=== PATIENT | female | born 1990 | race Caucasian/White ===

== ENCOUNTER 2024-05-11 14:47 | Outpatient (AMB) | payer BC, SELFPAY ==
--- NOTE | 2024-05-11 15:05 | MHC.PC.OV ---
Vital Signs 05/11/24 15:07 Height 5 ft 7 in Weight 257 lb BMI 40.2 BP 126/62 Blood Pressure Location Lt brachial Position Sitting Pulse 77 Pulse Source Pulse Oximeter Pulse Oximetry (%) 99 Oxygen Delivery Method Room Air Intake Visit Reasons: Establish Care never been seen Intake Note: Patient is here to establish care with [facility]. 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 Epi pen needed Allergy to nuts, raw tomatoes, citrus fruits. Executive Sales Manager Required: No Accompanied by: Self / Same As Patient Allergies No Known Allergies Allergy (Verified 05/11/24 15:14) Tobacco use date assessed: 05/11/24 Dental Screening Dental Screen Date: 05/11/24 Did you have a dental visit in the last 12 months?: Yes Did you have a dental problem in the last 6 months where you did not have access to dental care?: No Was dental information given to patient?: Patient has dentist HPI HPI Comments History of Present Illness Details This is a 33 year old female with a past medical history of food intolerance presenting to establish care She has noticed tongue, throat discomfort with certain foods, ones which she has generally tolerated in the past. She has hives/wheals at times. Does not know trigger. Denies CP palpitations. She notes chronic difficulty concentrating. spending 3x as long doing things she should be doing a lot faster ROS CONSTITUTIONAL: Denies weight loss, fever and chills. HEENT: Denies changes in vision and hearing. RESPIRATORY: Denies SOB and cough. CV: Denies palpitations and CP GI: Denies abdominal pain, nausea, vomiting and diarrhea. : Denies dysuria and urinary frequency. MSK: Denies new myalgia and joint pain. SKIN: Denies rash and pruritus. NEUROLOGICAL: Denies headache PSYCHIATRIC: Denies recent changes in mood. PHYSICAL EXAM: GENERAL: Alert and oriented x 3. NAD EYES: EOMI. Anicteric. HENT: Moist mucous membranes. No scleral icterus. No cervical lymphadenopathy. LUNGS: Clear to auscultation bilaterally. CARDIOVASCULAR: Regular rate and rhythm. No murmur. No JVD. ABDOMEN: Soft, non-tender +bs EXTREMITIES: No edema. Non-tender. SKIN: No rashes or lesions. Warm. NEUROLOGIC: No focal neurological deficits. CN II-XII grossly intact PSYCHIATRIC: Cooperative. Appropriate mood and affect [facility] Medical History (Updated 05/11/24 @ 15:35 by Madelin España MD) Hypertension Surgical History (Updated 05/11/24 @ 15:28 by Karly Koch CMA) No pertinent past surgical history Family History (Updated 05/11/24 @ 15:29 by Karly Koch CMA) Mother Hypertension High cholesterol Father High cholesterol Social History Household Members: Family Housing: House Do you presently have visiting nurse or other home services: No Alcohol intake: never Patient Tobacco Use Status: Never used Tobacco e-Cigarette/Vaping Use: Never Used service: No Current occupational status: employed Current occupation: [employer] Current occupational exposures/hazards: No Cognitive needs: No Hearing needs: No Vision needs: Yes (notices vision changes) Questionnaire PHQ-9 Over the last 2 weeks, how often have you been bothered by any of the following problems? 1. Little interest or pleasure in doing things: not at all 2. Feeling down, depressed, or hopeless: several days 3. Trouble falling or staying asleep, or sleeping too much: several days 4. Feeling tired or having little energy: more than half the days 5. Poor appetite or overeating: more than half the days 6. Feeling bad about yourself - or that you are a failure or have let yourself or your family down: not at all 7. Trouble concentrating on things, such as reading the newspaper or watching television: nearly every day 8. Moving or speaking so slowly that other people could have noticed. Or the opposite - being so fidgety or restless that you have been moving around a lot more than usual: several days 9. Thoughts that you would be better off or of hurting yourself in some way: not at all Total score: 10 Depression Screening Interpretation: Positive Depression Screening Done: Yes 52698 - PHQ-9 Billing: Yes Source: Developed by Drs. Juvenal Richards, Jess Medina, Mitchel Quach and colleagues, with an educational mich from [employer]. Thrive Questionnaire Date Thrive assessed: 05/11/24 I am a: Patient What is your living situation today?: I have a steady place to live Within the past 12 months, did the food you bought not last and you didn't have the money to get more?: Sometimes True Within the past 12 months, did you worry whether your food would run out before you got money to buy more?: Sometimes True Do you have trouble paying for medicines?: Yes Do you have trouble getting transportation to medical appointments?: No Do you have trouble paying your heating and electricity bill?: No Do you have trouble taking care of your child, family member or friend?: No Do you have trouble with day-to-day activities such as bathing, preparing meals, shopping, managing finances, etc.?: No Are you currently unemployed and looking for a job?: No Are you interested in more education?: Yes Please select the resources that you would like help with: Food and Paying for medicine Currently or been in a relationship where the following occur: No concerns reported THRIVE Score: 2 AUDIT C Alcohol Use Questionnaire (AUDIT-C) 1. How often do you have a drink containing alcohol?: Never 3. How often do you have six or more drinks on one occasion?: Never Total Score: 0 ELBA-7 AMB Questionnaire ELBA-7 Date ELBA - 7 assessed: 05/11/24 Feeling nervous, anxious, or on edge: 1 = Several days Not being able to stop or control worryin = Several days Worrying too much about different things: 3 = Nearly every day Trouble relaxin = Nearly every day Being so restless that it is hard to sit still: 1 = Several days Becoming easily annoyed or irritable: 3 = Nearly every day Feeling afraid as if something awful might happen: 1 = Several days Total ELBA-7 score (0-4 normal; 5-9 mild; 10-14 moderate; 15-21 severe): 13 Source: Developed by Drs. Juvenal Richards, Jess Medina, Mitchel Quach and colleagues, with an educational mich from [employer]. ELBA-7 Assessment Billing ELBA-7 Assessment Tool: ELBA-7 Assessment 44211 Physical exam (Primary Care) Vital Signs: Last Vital Signs Pulse 77 05/11/24 15:07 BP 126/62 05/11/24 15:07 Pulse Ox 99 05/11/24 15:07 Oxygen Delivery Method Room Air 05/11/24 15:07 BMI result Body Mass Index 40.2 Tobacco/Smoking Status: Tobacco use Status Tobacco use date assessed 05/11/24 05/11/24 15:25 Patient Tobacco Use Status Never used Tobacco 05/11/24 15:25 e-Cigarette/Vaping Use Never Used 05/11/24 15:25 PHQ-9: PHQ-9 Score PHQ-9: Total score 10 05/11/24 15:47 Depression Screening Interpretation: Positive Thrive Assessment: Date of Thrive Assessment Date Thrive assessed 05/11/24 05/11/24 15:25 Currently or been in a relationship where the following occur: No concerns reported Assessment and Plan Assessment & Plan (1) Physical exam: Code(s): Z00.00 - Encounter for general adult medical examination without abnormal findings (2) Elevated blood pressure reading without diagnosis of hypertension: Code(s): R03.0 - Elevated blood-pressure reading, without diagnosis of hypertension (3) Food allergy: Code(s): Z91.018 - Allergy to other foods Orders: Orders Complete Blood Count Auto Diff 05/11/24 Z13.0 - Encounter for screening for diseases of the blood and blood-forming organs and certain disorders involving the immune mechanism, Z13.220 - Encounter for screening for lipoid disorders, Z13.228 - Encounter for screening for other metabolic disorders Comprehensive Met. Panel 05/11/24 Z13.0 - Encounter for screening for diseases of the blood and blood-forming organs and certain disorders involving the immune mechanism, Z13.220 - Encounter for screening for lipoid disorders, Z13.228 - Encounter for screening for other metabolic disorders TSH reflex Free T4 05/11/24 Z13.0 - Encounter for screening for diseases of the blood and blood-forming organs and certain disorders involving the immune mechanism, Z13.220 - Encounter for screening for lipoid disorders, Z13.228 - Encounter for screening for other metabolic disorders Lipid Panel 05/11/24 Z13.0 - Encounter for screening for diseases of the blood and blood-forming organs and certain disorders involving the immune mechanism, Z13.220 - Encounter for screening for lipoid disorders, Z13.228 - Encounter for screening for other metabolic disorders Referrals [facility] Referral R03.0 - Elevated blood-pressure reading, without diagnosis of hypertension, Z00.00 - Encounter for general adult medical examination without abnormal findings, Z01.419 - Encounter for gynecological examination (general) (routine) without abnormal findings, Z13.0 - Encounter for screening for diseases of the blood and blood-forming organs and certain disorders involving the immune mechanism, Z13.220 - Encounter for screening for lipoid disorders, Z13.228 - Encounter for screening for other metabolic disorders, Z91.018 - Allergy to other foods Allergy & Immunology Referral Z91.018 - Allergy to other foods Medications: New epinephrine (EpiPen 2-Jeremiah) for 3 doses 0.3 mg (0.3 mL) IM Q10M PRN 2 ea 0RF anaphylaxis dextroamphetamine-amphetamine 10 mg (Adderall) administer doses at least 4-6 hours apart; Partial Fill upon patient request. 10 mg PO BID 30 days 60 tabs 0RF Coding Level of Care Code Est Pt Level 5 (20054) Complex EM visit Add On G2211 Diagnoses Physical exam Z00.00 Elevated blood pressure reading without diagnosis of hypertension R03.0 Food allergy Z91.018 Additional Codes ELBA-7 Assessment Billing - ELBA-7 Assessment Tool: ELBA-7 Assessment 84355 ([id number])
[2024-05-11 15:07] VITALS: BP 126/62; PULSE 77; O2SAT 99; BMI 40.2
== END 2024-05-11 15:49 | disposition home or self-care (01) ==
PROVIDERS: PCP Internal Medicine; Visit Provider Internal Medicine
DX: R03.0 Elevated blood-pressure reading, without diagnosis of hypertension (principal); Z91.018 Allergy to other foods
CPT/HCPCS: 99204

== ENCOUNTER 2024-05-11 15:51 | Outpatient (REF) | payer BC, SELFPAY ==
[2024-05-11 17:24] LABS: MANUAL DIFF FLAG NO
[2024-05-11 17:40] LABS: Basophils Percent Auto 0.1 % (0-2); Eosinophils Absolute Auto 0.1 X10*3/uL (0.0-0.4); Eosinophils Percent Auto 1.2 % (0-4); Hematocrit 38.6 % (37.0-47.0); Hemoglobin 13.1 g/dl (12.0-16.0); Imm Gran Abs Auto 0.02 X10*3/uL (0.00-0.03); Imm Gran Pct Auto 0.3 % (0.0-0.4); Lymphocytes Absolute Auto 1.7 X10*3/uL (1.2-4.9); Lymphocytes Percent Auto 24.9 % (20-40); Mean Corpuscular HGB Conc 33.9 g/dl (31.0-35.0); Mean Corpuscular Hemoglobin 29.8 pg (27.0-33.0); Mean Corpuscular Volume 87.9 fL (80.0-98.0); Mean Platelet Volume 10.9 fL (9.4-12.3); Monocytes Absolute Auto 0.8 X10*3/uL (0.1-1.2); Monocytes Percent Auto 11.6 % (2-11); Neutrophils Absolute Auto 4.2 x10*3/uL (2.0-8.3); Neutrophils Percent Auto 61.9 % (45-73); Platelet Count 284 X10*3/uL (160-400); Red Blood Count 4.39 X10*6/uL (4.20-5.50); Red Cell Distribution Width 12.8 % (11.0-16.0); White Blood Count 6.7 X10*3/uL (4.8-10.8)
[2024-05-11 18:13] LABS: Alanine Aminotransferase 36 U/L (0-31); Albumin Level 4.7 g/dL (3.5-5.0); Alkaline Phosphatase 67 U/L (39-117); Anion Gap 15 (12-20); Aspartate Amino Transferase 24 U/L (5-31); Bilirubin Total 0.3 mg/dL (0.0-1.0); Blood Urea Nitrogen 14 mg/dL (9-16); Calcium 9.9 mg/dL (8.4-10.2); Carbon Dioxide 25 mmol/L (22-29); Chloride 103 mmol/L (96-108); Cholesterol 259 mg/dL (<200); Estimated Glomerular Filt Rate > 60; Glucose Random 85 mg/dL (60-115); HDL Cholesterol 58 mg/dL (>40); LDL Cholesterol Calculated 178 mg/dL (<100); Sodium 139 mmol/L (135-145); Triglycerides 119 mg/dL (<150)
[2024-05-11 18:28] LABS: TSH reflex Free T4 0.59 uIU/mL (0.32-4.0)
== END 2024-05-11 15:52 | disposition home or self-care (01) ==
LOC: HO.WFDLDS 15:51
PROVIDERS: Visit Provider Internal Medicine
DX: Z13.0 Encounter for screening for diseases of the blood and blood-forming organs and certain disorders involving the immune mechanism (principal); Z13.220 Encounter for screening for lipoid disorders; Z13.228 Encounter for screening for other metabolic disorders
CPT/HCPCS: 36415; 80053; 80061; 84443; 85025

== ENCOUNTER → 2024-05-21 10:30 | Outpatient (AMB) | payer BC, SELFPAY ==
--- NOTE | 2024-05-21 09:54 | MHC.PC.OV ---
Intake Visit Reasons: Lab results Allergies No Known Allergies Allergy (Verified 05/11/24 15:14) Tobacco use date assessed: 05/11/24 Dental Screening Dental Screen Date: 05/11/24 HPI HPI Comments History of Present Illness Details This is a 33 year old female with a past medical history of food intolerance presenting for follow up labs Recently seen to [facility]. LDL 178 with elevated total cholesterol. Otherwise labs clinically normal She has noticed tongue, throat discomfort with certain foods, ones which she has generally tolerated in the past. She has hives/wheals at times. Does not know trigger. Denies CP palpitations. She notes chronic difficulty concentrating. spending 3x as long doing things she should be doing a lot faster [facility] Medical History (Updated 05/23/24 @ 19:20 by Madelin España MD) Hypertension Surgical History (Updated 05/11/24 @ 15:28 by Karly Koch CMA) No pertinent past surgical history Family History (Updated 05/11/24 @ 15:29 by Karly Koch CMA) Mother Hypertension High cholesterol Father High cholesterol Social History Household Members: Family Housing: House Do you presently have visiting nurse or other home services: No 75 years or older and lives alone: No Alcohol intake: never Patient Tobacco Use Status: Never used Tobacco e-Cigarette/Vaping Use: Never Used service: No Current occupational status: employed Current occupation: [employer] Current occupational exposures/hazards: No Cognitive needs: No Hearing needs: No Vision needs: Yes (notices vision changes) Questionnaire Thrive Questionnaire Date Thrive assessed: 05/11/24 ELBA-7 AMB Questionnaire ELBA-7 Date ELBA - 7 assessed: 05/11/24 Source: Developed by Drs. Juvenal Richards, Jess Medina, Mitchel Quach and colleagues, with an educational mihc from [employer]. Physical exam (Primary Care) Tobacco/Smoking Status: Tobacco use Status Tobacco use date assessed 05/11/24 05/21/24 09:55 Patient Tobacco Use Status Never used Tobacco 05/21/24 09:55 e-Cigarette/Vaping Use Never Used 05/21/24 09:55 Thrive Assessment: Date of Thrive Assessment Date Thrive assessed 05/11/24 05/21/24 09:55 Telehealth Telehealth Telehealth Platform: Telephone Location of provider rendering services: practice address Location of patient: address on file Patient Identification confirmed using: Name, : Yes Telehealth method: voice only Patient verbally consented to treatment: Yes Patient verbally consented to billing insurance company: Yes Patient informed of any privacy concerns related to visit: Yes Minutes spent on Phone/Video with Pt.: 13 Assessment and Plan Assessment & Plan (1) Hyperlipidemia: Code(s): E78.5 - Hyperlipidemia, unspecified Qualifiers: Hyperlipidemia type: pure hypercholesterolemia Qualified Code(s): E78.00 - Pure hypercholesterolemia, unspecified Plan: Advised diet low in saturated fats-decreased packaged and prepared foods.. Increased physical activity Coding Level of Care Code Tele Est Pt Level 2 (64648) Diagnoses Pure hypercholesterolemia E78.00 Hyperlipidemia type: pure hypercholesterolemia
== END ==
LOC: HO.HMGFM 10:30
PROVIDERS: PCP Internal Medicine; Visit Provider Internal Medicine
DX: E78.00 Pure hypercholesterolemia, unspecified (principal)
CPT/HCPCS: 99442

== ENCOUNTER 2024-10-25 11:01 | Outpatient (AMB) | payer BC, SELFPAY ==
--- NOTE | 2024-10-25 11:12 | A.OFFPC_ITS ---
Vital Signs 10/25/24 11:13 Height 5 ft 7 in Weight 243 lb 2 oz BMI 38.1 BP 116/84 Blood Pressure Location Lt brachial Position Sitting Pulse 120 H Pulse Source Pulse Oximeter Temp 99 F Temp Source Oral Pulse Oximetry (%) 97 Oxygen Delivery Method Room Air Intake Visit Reasons: Nausea/vomiting Intake Note: Nausea, vomiting, diarrhea, lower back pain. Symptoms for the last couple days. Allergies No Known Allergies Allergy (Verified 10/25/24 11:13) Tobacco use date assessed: 05/11/24 Dental Screening Dental Screen Date: 05/11/24 HPI HPI Comments History of Present Illness Details This is a 34 year old female with a past medical history of food intolerance presenting for nausea Has been having digestion issues chronically. Yesterday, started having diarrhea and some vomiting yesterday. +nausea. Denies fevers. Feels fatigued, sore. Unsure of sick contacts. Able to tolerate drinking, eating. She has been taking some pepcid Hyperlipidemia: Decreased cholesterol rich foods. She has noticed tongue, throat discomfort with certain foods, ones which she has generally tolerated in the past. She has hives/wheals at times. Does not know trigger. Denies CP palpitations. She notes chronic difficulty concentrating. spending 3x as long doing things she should be doing a lot faster ROS see HPI PHYSICAL EXAM: GENERAL: Alert and oriented x 3. NAD EYES: EOMI. Anicteric. HENT: Moist mucous membranes. No scleral icterus. No cervical lymphadenopathy. LUNGS: Clear to auscultation bilaterally. CARDIOVASCULAR: Regular rate and rhythm. No murmur. No JVD. ABDOMEN: Soft, non-tender +bs EXTREMITIES: No edema. Non-tender. SKIN: No rashes or lesions. Warm. NEUROLOGIC: No focal neurological deficits. CN II-XII grossly intact PSYCHIATRIC: Cooperative. Appropriate mood and affect [facility] Medical History Hypertension Surgical History No pertinent past surgical history Family History Mother Hypertension High cholesterol Father High cholesterol Social History Household Members: Family Housing: House Do you presently have visiting nurse or other home services: No 75 years or older and lives alone: No Alcohol intake: never Patient Tobacco Use Status: Never used Tobacco e-Cigarette/Vaping Use: Never Used Use of substances other than those prescribed or required for medical reasons: No service: No Current occupational status: employed Current occupation: [employer] Current occupational exposures/hazards: No Cognitive needs: No Hearing needs: No Vision needs: Yes (notices vision changes) Questionnaire PHQ-9 Over the last 2 weeks, how often have you been bothered by any of the following problems? 1. Little interest or pleasure in doing things: not at all 2. Feeling down, depressed, or hopeless: not at all 3. Trouble falling or staying asleep, or sleeping too much: several days 4. Feeling tired or having little energy: several days 5. Poor appetite or overeating: not at all 6. Feeling bad about yourself - or that you are a failure or have let yourself or your family down: not at all 7. Trouble concentrating on things, such as reading the newspaper or watching television: several days 8. Moving or speaking so slowly that other people could have noticed. Or the opposite - being so fidgety or restless that you have been moving around a lot more than usual: not at all 9. Thoughts that you would be better off or of hurting yourself in some way: not at all Total score: 3 Depression Screening Interpretation: Positive Depression Screening Done: Yes 09238 - PHQ-9 Billing: Yes Source: Developed by Drs. Juvenal Richards, Jess Medina, Mitchel Quach and colleagues, with an educational mich from [employer]. Thrive Questionnaire Date Thrive assessed: 10/25/24 I am a: Patient What is your living situation today?: I have a steady place to live Within the past 12 months, did the food you bought not last and you didn't have the money to get more?: Sometimes True Within the past 12 months, did you worry whether your food would run out before you got money to buy more?: Sometimes True Do you have trouble paying for medicines?: No Do you have trouble getting transportation to medical appointments?: No Do you have trouble paying your heating and electricity bill?: No Do you have trouble taking care of your child, family member or friend?: No Do you have trouble with day-to-day activities such as bathing, preparing meals, shopping, managing finances, etc.?: No Are you currently unemployed and looking for a job?: No Are you interested in more education?: Yes Please select the resources that you would like help with: None Currently or been in a relationship where the following occur: No concerns reported THRIVE Score: 2 AUDIT C Alcohol Use Questionnaire (AUDIT-C) 1. How often do you have a drink containing alcohol?: Never Total Score: 0 ELBA-7 AMB Questionnaire ELBA-7 Date ELBA - 7 assessed: 05/11/24 Feeling nervous, anxious, or on edge: 1 = Several days Not being able to stop or control worryin = Several days Worrying too much about different things: 1 = Several days Trouble relaxin = Nearly every day Being so restless that it is hard to sit still: 1 = Several days Becoming easily annoyed or irritable: 2 = More than half the days Feeling afraid as if something awful might happen: 0 = Not at all Total ELBA-7 score (0-4 normal; 5-9 mild; 10-14 moderate; 15-21 severe): 9 Source: Developed by Drs. Juvenal Richards, Jess Medina, Mitchel Quach and colleagues, with an educational mich from [employer]. ELBA-7 Assessment Billing ELBA-7 Assessment Tool: ELBA-7 Assessment 55069 Physical exam (Primary Care) Vital Signs: Last Vital Signs Temp 99 F 10/25/24 11:13 Pulse 120 H 10/25/24 11:13 BP 116/84 10/25/24 11:13 Pulse Ox 97 10/25/24 11:13 Oxygen Delivery Method Room Air 10/25/24 11:13 BMI result Body Mass Index 38.1 Tobacco/Smoking Status: Tobacco use Status Tobacco use date assessed 05/11/24 10/25/24 11:17 Patient Tobacco Use Status Never used Tobacco 10/25/24 11:17 e-Cigarette/Vaping Use Never Used 10/25/24 11:17 PHQ-9: PHQ-9 Score PHQ-9: Total score 3 10/25/24 11:19 Depression Screening Interpretation: Positive Thrive Assessment: Date of Thrive Assessment Date Thrive assessed 10/25/24 10/25/24 11:17 Currently or been in a relationship where the following occur: No concerns reported Coding Level of Care Code Est Pt Level 4 (51126) Diagnoses Nausea R11.0 Additional Codes ELBA-7 Assessment Billing - ELBA-7 Assessment Tool: ELBA-7 Assessment 03958 ([id number]) PHQ-9 - 22702 - PHQ-9 Billing: Yes ([id number]) Assessment & Plan Assessment & Plan (1) Nausea: Code(s): R11.0 - Nausea Category: Medical Plan: Discussed symptoms likely reflect a viral GI illness. zofran sent. Push fluids, rest. continue prn pepcid. Call for worsening abdominal pain, inability to tolerate po, fevers etc Medications: New ondansetron 4 mg PO Q8H PRN 30 tabs 0RF nausea and vomiting
[2024-10-25 11:13] VITALS: BP 116/84; PULSE 120; TEMP 37.2; O2SAT 97; BMI 38.1
== END 2024-10-25 11:34 | disposition home or self-care (01) ==
PROVIDERS: PCP Internal Medicine; Visit Provider Internal Medicine
DX: R11.0 Nausea (principal)

== ENCOUNTER → 2024-10-25 11:01 | Outpatient (BNVA) | payer BC, SELFPAY | PROVIDERS: PCP Internal Medicine; Visit Provider Internal Medicine | DX: R11.0 Nausea (principal); R19.7 Diarrhea, unspecified | CPT/HCPCS: 96127 ==

== ENCOUNTER 2024-11-22 14:55 | Outpatient (REF) | payer BC, SELFPAY ==
[2024-11-22 18:48] LABS: Influenza A PCR NEGATIVE (Negative); Influenza B PCR NEGATIVE (Negative); Resp Syncy Virus RNA Qual PCR NEGATIVE (Negative); SARS COV2 PCR INHOUSE NEGATIVE (Negative)
== END 2024-11-22 14:56 | disposition home or self-care (01) ==
LOC: HO.LAB 14:55
PROVIDERS: PCP Internal Medicine; Visit Provider Physician Assistant Medical
DX: J02.0 Streptococcal pharyngitis (principal); R09.89 Other specified symptoms and signs involving the circulatory and respiratory systems; R50.9 Fever, unspecified
CPT/HCPCS: 0241U; 87880

== ENCOUNTER 2024-11-22 14:55 | Outpatient (AMB) | payer BC, SELFPAY ==
--- NOTE | 2024-11-22 14:56 | MHC.PC.OV ---
Vital Signs 11/22/24 15:03 Height 5 ft 7 in Weight 243 lb BMI 38.1 BP 116/72 Blood Pressure Location Rt brachial Position Sitting Pulse 92 Pulse Source Pulse Oximeter Temp 98.2 F Temp Source Oral Pulse Oximetry (%) 98 Oxygen Delivery Method Room Air Intake Visit Reasons: sore throat, chills and fever Intake Note: Symptoms started Friday. Chills, fever was 104 on friday, 102 and 103 other day. Sore throat, ear pain, jaw pain. Taking ibuprofen. Covid test negative yesterday. 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 Symptoms started Friday and include fevers, chills, fatigue, body aches, headache and sore throat. Temperature max was 104 Friday. Temperature has been 102-103 since then. Took 800 mg Motrin today and is currently afebrile. Sore throat hurts more to swallow. Rated 8/10. Radiates into jaw and ears. Negative COVID-19 tests yesterday at home. 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 Patient able to swallow normally and is eating and drinking. No vomiting, diarrhea, abdominal pain or skin rashes. Patient did not receive influenza vaccine. Patient also has recurrent cold sore on her lower lip. ROS: Constitutional: No unexplained weight loss, night sweats, see HPI. Eyes: No vision changes, blurry vision, double vision, eye pain, eye redness, eye discharge. ENT: No hearing loss, sinus pain. Mild nasal congestion. Respiratory: No shortness of breath, hemoptysis or sputum production. No wheezing. Cardiovascular: No chest pain, chest pressure or chest discomfort. Gastrointestinal: No anorexia, nausea, vomiting or diarrhea. No abdominal pain or blood in stool. Neurologic: No dizziness or syncope. +headache. Skin: No rash Physical exam: Constitutional: Alert, in no distress. Eyes: Pupils are equal, round and reactive to light. Extraocular muscles intact. Ear, Nose and Throat: There is some cerumen in the right canal, but the TM is visible and appears normal. Left tympanic membrane is slightly pink but no bulging or effusion. Sinuses nontender. Nasal mucosa is mildly erythematous. Tonsils and pharyngeal erythema noted and tonsils are 2+-no visible exudates. There is a small cold sore on the left lower lip. Neck: Supple, Full range of motion. Bilateral anterior cervical and submandibular lymphadenopathy. No palpable thyroid masses. Respiratory: Clear to auscultation. Cardiovascular: S1 S2 regular. No murmurs Gastrointestinal: Abdomen soft, non-tender, non-distended. Normal bowel sounds. No palpable masses.. Neurologic: No focal neurological deficits. Skin: No rash Extremities: Warm and well perfused. No clubbing, cyanosis or edema. [facility] Medical History (Updated 11/22/24 @ 15:27 by ORTIZ Sloan) Recurrent cold sores Fever Strep pharyngitis Hypertension Surgical History No pertinent past surgical history Family History Mother Hypertension High cholesterol Father High cholesterol Social History Household Members: Family Housing: House Do you presently have visiting nurse or other home services: No 75 years or older and lives alone: No Alcohol intake: never Patient Tobacco Use Status: Never used Tobacco e-Cigarette/Vaping Use: Never Used service: No Current occupational status: employed Current occupation: [employer] Current occupational exposures/hazards: No Cognitive needs: No Hearing needs: No Vision needs: Yes (notices vision changes) Questionnaire PHQ-9 Over the last 2 weeks, how often have you been bothered by any of the following problems? 1. Little interest or pleasure in doing things: several days Source: Developed by Drs. Juvenal Richards, Jess Medina, Mitchel Quach and colleagues, with an educational mich from [employer]. Thrive Questionnaire Date Thrive assessed: 10/25/24 I am a: Patient What is your living situation today?: I have a steady place to live Within the past 12 months, did the food you bought not last and you didn't have the money to get more?: Sometimes True Within the past 12 months, did you worry whether your food would run out before you got money to buy more?: Sometimes True Do you have trouble paying for medicines?: No Do you have trouble getting transportation to medical appointments?: No Do you have trouble paying your heating and electricity bill?: No Do you have trouble taking care of your child, family member or friend?: No Do you have trouble with day-to-day activities such as bathing, preparing meals, shopping, managing finances, etc.?: No Are you currently unemployed and looking for a job?: No Are you interested in more education?: Yes Please select the resources that you would like help with: None Currently or been in a relationship where the following occur: No concerns reported THRIVE Score: 2 ELBA-7 AMB Questionnaire ELBA-7 Date ELBA - 7 assessed: 05/11/24 Source: Developed by Drs. Juvenal Richards, Jess Medina, Mitchel Quach and colleagues, with an educational mich from [employer]. Physical exam (Primary Care) Vital Signs: Last Vital Signs Temp 98.2 F 11/22/24 15:03 Pulse 92 11/22/24 15:03 BP 116/72 11/22/24 15:03 Pulse Ox 98 11/22/24 15:03 Oxygen Delivery Method Room Air 11/22/24 15:03 BMI result Body Mass Index 38.1 Tobacco/Smoking Status: Tobacco use Status Tobacco use date assessed 05/11/24 11/22/24 14:58 Patient Tobacco Use Status Never used Tobacco 11/22/24 14:58 e-Cigarette/Vaping Use Never Used 11/22/24 14:58 Thrive Assessment: Date of Thrive Assessment Date Thrive assessed 10/25/24 11/22/24 14:58 Currently or been in a relationship where the following occur: No concerns reported Results AMB Rapid Strep AMB Rapid Strep Positive Last Edit by Jacy Davidson CMA on 11/22/24 15:09 Results Reviewed Results Reviewed: Laboratory Last Values Strep Scn Rapid [facility] Positive 11/22/24 15:06 Coding Level of Care Code Est Pt Level 3 (30143) Complex EM visit Add On G2211 Diagnoses Strep pharyngitis J02.0 Fever R50.9 Recurrent cold sores B00.1 Assessment & Plan Assessment & Plan (1) Strep pharyngitis: Code(s): J02.0 - Streptococcal pharyngitis Category: Medical (2) Fever: Code(s): R50.9 - Fever, unspecified Category: Medical (3) Recurrent cold sores: Code(s): B00.1 - Herpesviral vesicular dermatitis Category: Medical Plan Rapid strep is positive. No known drug allergies. Treat with amoxicillin 500 mg twice daily. Recommended taking this with food and having yogurt and probiotics. Advised to call if symptoms do not improve in 24-48 hours on antibiotics. She can continue Motrin as needed for pain and fever. Take with food. Rest and increase fluids. Letter provided for work. Swab sent out for influenza/RSV/COVID. Treat cold sort with valacyclovir. Warning signs warranting ER evaluation and office follow up reviewed with the patient. She verbalizes understanding. Orders: Orders SARS-CoV2/FLU/RSV Today R09.89 - Other specified symptoms and signs involving the circulatory and respiratory systems AMB Rapid Strep Screen Today J02.9 - Acute pharyngitis, unspecified Medications: New valacyclovir 2,000 mg (2 x 1 gram) PO Q12H 4 tabs 0RF 1 day amoxicillin 500 mg PO BID 20 tabs 0RF
[2024-11-22 15:03] VITALS: BP 116/72; PULSE 92; TEMP 36.8; O2SAT 98; BMI 38.1
== END 2024-11-22 16:53 | disposition home or self-care (01) ==
PROVIDERS: PCP Internal Medicine; Visit Provider Physician Assistant Medical
DX: J02.0 Streptococcal pharyngitis (principal); R50.9 Fever, unspecified; B00.1 Herpesviral vesicular dermatitis; J02.9 Acute pharyngitis, unspecified

== ENCOUNTER 2025-05-27 10:35 | Outpatient (REF) | payer BC, SELFPAY ==
[2025-05-27 14:47] LABS: MANUAL DIFF FLAG NO
[2025-05-27 15:10] LABS: Hematocrit 38.1 % (37.0-47.0); Hemoglobin 12.6 g/dl (12.0-16.0); Imm Gran Abs Auto 0.02 X10*3/uL (0.00-0.03); Imm Gran Pct Auto 0.3 % (0.0-0.4); Lymphocytes Absolute Auto 2.0 X10*3/uL (1.2-4.9); Mean Corpuscular HGB Conc 33.1 g/dl (31.0-35.0); Mean Corpuscular Hemoglobin 29.6 pg (27.0-33.0); Mean Corpuscular Volume 89.4 fL (80.0-98.0); NRBC Abs Auto 0.000 X10*3/uL (0.0-0.012); NRBC Pct Auto 0.0 /100WBC (0.0-0.2); Platelet Count 265 X10*3/uL (160-400); Red Blood Count 4.26 X10*6/uL (4.20-5.50); White Blood Count 7.2 X10*3/uL (4.8-10.8)
[2025-05-27 15:13] LABS: Hemoglobin A1C 116.1712 umol/L; Total Hemoglobin (HGBA1C) 3246.8278 umol/L
[2025-05-27 15:52] LABS: Alanine Aminotransferase 34 U/L (0-31); Albumin Level 4.6 g/dL (3.5-5.0); Alkaline Phosphatase 64 U/L (39-117); Anion Gap 11 (12-20); Aspartate Amino Transferase 29 U/L (5-31); Blood Urea Nitrogen 13 mg/dL (9-16); Calcium 9.3 mg/dL (8.4-10.2); Carbon Dioxide 24 mmol/L (22-29); Chloride 106 mmol/L (96-108); Cholesterol 263 mg/dL (<200); Estimated Glomerular Filt Rate > 60; HDL Cholesterol 54 mg/dL (>40); Potassium 4.2 mmol/L (3.3-5.1); Sodium 137 mmol/L (135-145); Total Protein 7.5 g/dL (6.5-8.0); Triglycerides 175 mg/dL (<150)
[2025-05-27 16:16] LABS: Folate 6.5 ng/mL (> or = 4.0); Vitamin B12 494 pg/mL (200-900)
[2025-06-02 22:18] LABS: Testosterone, Free 10.2 pg/mL (0.1-6.4)
== END 2025-05-27 10:36 | disposition home or self-care (01) ==
LOC: HO.WFDLDS 10:35
PROVIDERS: PCP Internal Medicine; Visit Provider Physician Assistant Medical
DX: Z00.00 Encounter for general adult medical examination without abnormal findings (principal); R03.0 Elevated blood-pressure reading, without diagnosis of hypertension; E78.00 Pure hypercholesterolemia, unspecified; D22.9 Melanocytic nevi, unspecified; R11.0 Nausea; L68.0 Hirsutism; Z13.0 Encounter for screening for diseases of the blood and blood-forming organs and certain disorders involving the immune mechanism; Z13.1 Encounter for screening for diabetes mellitus
CPT/HCPCS: 36415; 80053; 80061; 82607; 82746; 83036; 84402; 84403; 84443; 85025

== ENCOUNTER 2025-05-27 10:35 | Outpatient (AMB) | payer BC, SELFPAY ==
--- OUTSIDE RECORDS SUMMARY | 2025-05-27 10:37 | XMS_ITS | Clinical Summary ---
Author Organization [facility] Address [address] [place] [address] Care Team Providers Care Doll Dresser Name Role Phone Shandra Zacarias SATYA Primary Care Provider Source Comments PLEASE NOTE, if this patient is a minor, it may be UNLAWFUL to discuss sensitive information that is contained in these records (such as FAMILY PLANNING, MENTAL HEALTH or SUBSTANCE ABUSE) with the minor patient's parent or other person without the patient's specific authorization.[facility] Allergies Active Allergy Reactions Criticality Noted Date Comments Apples Rash 06/10/2013 Medications minoxidil (ROGAINE) 2 % external solutionIndicati ons:Alopecia of scalp Apply topically 2 (two) times daily. 60 mL 1 4 Active butalbital-aceta minophen-caff (FIORICET, ESGIC) 50-325-40 mg per tabletIndication s:Acute intractable tension-type headache Take 1 Tab by mouth every 6 (six) hours as needed for headaches 30 Tab 2 8 Active melatonin 3 mg tabletIndication s:Other insomnia Take 1 Tab by mouth nightly at bedtime as needed for sleep Can take 1 to 2 tabs as needed for insomnia 90 Tab 3 8 Active EPINEPHrine (EPIPEN) 0.3 mg/0.3 mL pen injectorIndicati ons:Food allergy Inject 0.3 mL into the muscle as needed for anaphylaxis 1 Each 3 0 Active hydrOXYzine HCL (ATARAX) 25 mg tabletIndication s:Test anxiety Take 1 Tab by mouth 3 (three) times daily as needed for anxiety 30 Tab 0 Active LORazepam (ATIVAN) 0.5 mg tabletIndication s:Test anxiety Take 1 Tab by mouth once daily 5 Tab 0 Active Active Problems Problem Noted Date Diagnosed Date Pelvic pain in female 02/19/2015 Overview (02/19/2015): [facility] US pelvis 2014: Essentially normal pelvic US with transvaginal abdominal scanning. Normal size and shape to the uterus and ovaries. Alopecia of scalp 03/10/2014 Allergy 03/10/2014 Bunion of great toe 03/10/2014 Resolved Problems Problem Noted Date Diagnosed Date Resolved Date Routine general medical exam ination at a health care facility 03/10/2014 05/20/2018 Immunizations Immunization Administration Dates Next Due TDAP 06/24/2014 Social History Tobacco Use Types Packs/Day Years Used Date Smoking Tobacco: Never Smokeless Tobacco: Never Alcohol Use Standard Drinks/Week Comments No 0 (1 standard drink = 0.6 oz pur e alcohol) Social Connections Answer Date Recorded Connectedness 0 06/25/2024 Financial Resource Strain Answer Date R ecorded Financial Resource Strain 0 2018 Stress Answer Date Recorded Stress 0 06/12/2019 Physical Activity Answer Date Recorded Physical Activity 0 06/12/2019 Food Insecurity Answer Date Recorded Food 0 07/15/2024 Transportation Needs Answer Date Record ed Transportation 0 06/12/2019 Housing Stability Answer Date Recorded Housing 0 06/12/2019 Safety and Environment Answer Date Matt rded Safety 0 08/04/2020 Utilities Answer Date Recorded Utilities 0 06/12/2019 Employment Answer Date Recorded Employment 0 06/12/2019 Comments No Sex and Gender Information Value Date Recorded Sex Assigned at Female 05/20/2018 12:48 PM PDT Legal Sex Female 11:36 AM PDT Gender Identity Female 05/20/2018 12:48 PM PDT Sexual Orientation Straight 05/20/2018 12 :48 PM PDT Last Filed Vital Signs Vital Sign Reading Time Taken Comments Blood Pressure 110/74 08/04/2020 3:28 PM EDT Pulse 92 08/04/2020 3:28 PM EDT Temperature 37.5 C (99.5 F) 08/04/2020 3:28 PM EDT Respiratory Rate 16 08/04/2020 3:28 PM EDT Oxygen Saturation 99% 08/04/2020 3:28 PM EDT Inhaled Oxygen Concentration - - Weight 102.5 kg (226 lb) 08/04/2020 3:28 PM EDT Height 175 cm (5' 8.9 ) 08/04/2020 3:28 PM EDT Body Mass Index 33.47 08/04/2020 3:28 PM EDT Plan of Treatment Not on file Insurance JOSÉ MIGUEL MEDINA/TYLER BERNARD Care Teams Doll Dresser Relationship Specialty Start Date End Date Shandra Zacarias FNP [address] [place] [id number] PCP - General Family Medicine, THERMAL TECHNICIAN 03/03/15
--- NOTE | 2025-05-27 10:58 | MHC.PC.OV ---
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: No Allergies No Known Allergies Allergy (Verified 05/27/25 11:00) Tobacco use date assessed: 05/27/25 Dental Screening Dental Screen Date: 05/27/25 Did you have a dental visit in the last 12 months?: Yes Did you have a dental problem in the last 6 months where you did not have access to dental care?: No Was dental information given to patient?: Patient has dentist HPI HPI Comments History of Present Illness Details This is a 34 year old female with a past medical history of food intolerance, allergies presenting for annual exam Concerns today -Non healing right mole/pimple on right lower thigh x one year -Right pelvic pain with exercise, sharp deep. No injury. x months -Decreased vision, blurry vision x months. Overdue eye exam. Hyperlipidemia: Decreased cholesterol rich foods. She has noticed tongue, throat discomfort with certain foods, ones which she has generally tolerated in the past. She has hives/wheals at times. Does not know trigger. Denies CP palpitations. ROS see HPI PHYSICAL EXAM: GENERAL: Alert and oriented x 3. NAD EYES: EOMI. Anicteric. HENT: Moist mucous membranes. No scleral icterus. No cervical lymphadenopathy. LUNGS: Clear to auscultation bilaterally. CARDIOVASCULAR: Regular rate and rhythm. No murmur. No JVD. ABDOMEN: Soft, non-tender +bs EXTREMITIES: No edema. Non-tender. SKIN: small red circular lesion, slightly raised right thigh NEUROLOGIC: No focal neurological deficits. CN II-XII grossly intact PSYCHIATRIC: Cooperative. Appropriate mood and affect [facility] Medical History Recurrent cold sores Fever Strep pharyngitis Hypertension Surgical History No pertinent past surgical history Family History Mother Hypertension High cholesterol Father High cholesterol Social History Household Members: Family Housing: House Do you presently have visiting nurse or other home services: No 75 years or older and lives alone: No Alcohol intake: never Patient Tobacco Use Status: Never used Tobacco e-Cigarette/Vaping Use: Never Used service: No Current occupational status: employed Current occupation: [employer] Current occupational exposures/hazards: No Cognitive needs: No Hearing needs: No Vision needs: Yes (notices vision changes) Questionnaire Thrive Questionnaire Date Thrive assessed: 10/25/24 I am a: Patient What is your living situation today?: I have a steady place to live Within the past 12 months, did the food you bought not last and you didn't have the money to get more?: Sometimes True Within the past 12 months, did you worry whether your food would run out before you got money to buy more?: Sometimes True Do you have trouble paying for medicines?: No Do you have trouble getting transportation to medical appointments?: No Do you have trouble paying your heating and electricity bill?: No Do you have trouble taking care of your child, family member or friend?: No Do you have trouble with day-to-day activities such as bathing, preparing meals, shopping, managing finances, etc.?: No Are you currently unemployed and looking for a job?: No Are you interested in more education?: Yes Please select the resources that you would like help with: None Currently or been in a relationship where the following occur: No concerns reported THRIVE Score: 2 AUDIT C Alcohol Use Questionnaire (AUDIT-C) 1. How often do you have a drink containing alcohol?: Never 3. How often do you have six or more drinks on one occasion?: Never Total Score: 0 ELBA-7 AMB Questionnaire ELBA-7 Date ELBA - 7 assessed: 05/11/24 Source: Developed by Drs. Juvenal Richards, Jess Medina, Mitchel Quach and colleagues, with an educational mich from [employer]. Physical exam (Primary Care) Vital Signs: Last Vital Signs Temp 98.6 F 05/27/25 11:01 Pulse 80 05/27/25 11:01 Resp 14 05/27/25 11:01 BP 102/86 05/27/25 11:01 Pulse Ox 98 05/27/25 11:01 Oxygen Delivery Method Room Air 05/27/25 11:01 BMI result Body Mass Index 40.3 Tobacco/Smoking Status: Tobacco use Status Tobacco use date assessed 05/27/25 05/27/25 11:04 Patient Tobacco Use Status Never used Tobacco 05/27/25 11:04 e-Cigarette/Vaping Use Never Used 05/27/25 11:04 Thrive Assessment: Date of Thrive Assessment Date Thrive assessed 10/25/24 05/27/25 11:04 Currently or been in a relationship where the following occur: No concerns reported Coding Level of Care Code Est Pt Prev Care 18-39y(23528) Diagnoses Physical exam Z00.00 Elevated blood pressure reading without diagnosis of hypertension R03.0 Pure hypercholesterolemia E78.00 Hyperlipidemia type: pure hypercholesterolemia Atypical nevi D22.9 Assessment & Plan Assessment & Plan (1) Physical exam: Code(s): Z00.00 - Encounter for general adult medical examination without abnormal findings Category: Medical (2) Elevated blood pressure reading without diagnosis of hypertension: Code(s): R03.0 - Elevated blood-pressure reading, without diagnosis of hypertension Category: Medical (3) Hyperlipidemia: Code(s): E78.5 - Hyperlipidemia, unspecified Category: Medical Qualifiers: Hyperlipidemia type: pure hypercholesterolemia Qualified Code(s): E78.00 - Pure hypercholesterolemia, unspecified (4) Atypical nevi: Code(s): D22.9 - Melanocytic nevi, unspecified Category: Medical Plan 34 year old for CPE Interval history reviewed Has had some chest tightness at work linked with anxiety panic-lorazepam sparing. Labs ordered skin lesion, non healing-referral dermatology Hip flexor pain-referral ortho Carpal tunnel pain-exercises, splint Orders: Orders Complete Blood Count Auto Diff Today E78.00 - Pure hypercholesterolemia, unspecified, R03.0 - Elevated blood-pressure reading, without diagnosis of hypertension, R11.0 - Nausea, Z13.0 - Encounter for screening for diseases of the blood and blood-forming organs and certain disorders involving the immune mechanism Hemoglobin A1c Today E78.00 - Pure hypercholesterolemia, unspecified, R03.0 - Elevated blood-pressure reading, without diagnosis of hypertension, R11.0 - Nausea, Z13.0 - Encounter for screening for diseases of the blood and blood-forming organs and certain disorders involving the immune mechanism Testosterone, Free/Total Today L68.0 - Hirsutism Comprehensive Met. Panel Today E78.00 - Pure hypercholesterolemia, unspecified, R03.0 - Elevated blood-pressure reading, without diagnosis of hypertension, R11.0 - Nausea, Z13.0 - Encounter for screening for diseases of the blood and blood-forming organs and certain disorders involving the immune mechanism Lipid Panel Today E78.00 - Pure hypercholesterolemia, unspecified, R03.0 - Elevated blood-pressure reading, without diagnosis of hypertension, R11.0 - Nausea, Z13.0 - Encounter for screening for diseases of the blood and blood-forming organs and certain disorders involving the immune mechanism TSH reflex Free T4 Today E78.00 - Pure hypercholesterolemia, unspecified, R03.0 - Elevated blood-pressure reading, without diagnosis of hypertension, R11.0 - Nausea, Z13.0 - Encounter for screening for diseases of the blood and blood-forming organs and certain disorders involving the immune mechanism Vitamin B12 and Folate Today E78.00 - Pure hypercholesterolemia, unspecified, R03.0 - Elevated blood-pressure reading, without diagnosis of hypertension, R11.0 - Nausea, Z13.0 - Encounter for screening for diseases of the blood and blood-forming organs and certain disorders involving the immune mechanism Referrals Ophthalmology Referral H54.7 - Unspecified visual loss Allergy & Immunology Referral Z91.018 - Allergy to other foods Dermatology Referral D22.9 - Melanocytic nevi, unspecified Orthopedics Referral M76.899 - Other specified enthesopathies of unspecified lower limb, excluding foot Medications: New lorazepam 0.5 mg PO BID PRN 30 tabs 0RF anxiety
[2025-05-27 11:01] VITALS: BP 102/86; PULSE 80; RESP 14; TEMP 37; O2SAT 98; BMI 40.3
== END 2025-05-27 11:43 | disposition home or self-care (01) ==
LOC: HO.HMCFM 10:35
PROVIDERS: PCP Internal Medicine; Visit Provider Physician Assistant Medical
DX: Z00.00 Encounter for general adult medical examination without abnormal findings (principal); R03.0 Elevated blood-pressure reading, without diagnosis of hypertension; E78.00 Pure hypercholesterolemia, unspecified; D22.9 Melanocytic nevi, unspecified

== ENCOUNTER 2025-08-19 14:20 | Outpatient (AMB) | payer BC, SELFPAY ==
--- NOTE | 2025-08-19 14:33 | A.OFFVIS_ITS ---
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 No hx of injections, physical therapy. Patient reports ongoing pain for about 5 to 6 years. 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 She states that her pain is near the groin area of her hip/ moves down her leg. Patient notices that her pain goes through her whole leg and it prevents her from walking. Patient notices that her pain is worse when she is walking and running or jogging. Patient has tried taking ibuprofen with mild relief. 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 Otero is a 34-year-old female who presents to the office today for evaluation of right lower extremity pain, weakness and numbness. She reports that the symptoms are intermittent and has been present for many years. She was previously a runner and would like to get back to this activity. She notes that with sitting cross legged for long periods of time she develops a soreness in the lateral aspect of her right thigh. After physical activity she also notes that the anterior right thigh feels numb and the leg feels heavy to lift. [facility] Medical History Recurrent cold sores Fever Strep pharyngitis Hypertension Surgical History No pertinent past surgical history Family History Mother Hypertension High cholesterol Father High cholesterol Social History Household Members: Family Housing: House Do you presently have visiting nurse or other home services: No 75 years or older and lives alone: No Alcohol intake: never Patient Tobacco Use Status: Never used Tobacco e-Cigarette/Vaping Use: Never Used service: No Current occupational status: employed Current occupation: [employer] Current occupational exposures/hazards: No Cognitive needs: No Hearing needs: No Vision needs: Yes (notices vision changes) Review of Systems Const All systems reviewed & are unremarkable except as noted in HPI and below Physical Exam Const General: cooperative, healthy appearing and no acute distress Resp Effort & Inspection: normal respiratory effort and able to speak in complete sentences Extrem Other: Right hip: Normal to inspection. No ecchymosis, erythema, or edema. Full hip ROM in all planes with no reported groin pain. No tenderness to palpation over the greater trochanteric bursa. 5/5 strength with resisted hip flexion, knee extension, abduction, and abduction. Able to perform straight leg raise. NVI. Psych Appearance: grossly normal Mental Status: mental status grossly normal Attitude: cooperative Assessment & Plan Assessment & Plan (1) Lumbar radiculopathy, right: Code(s): M54.16 - Radiculopathy, lumbar region Category: Medical Plan Ms. Otero is a 34-year-old female who presents to the office today for evaluation of right lower extremity pain, weakness and numbness. She reports that the symptoms are intermittent and has been present for many years. She was previously a runner and would like to get back to this activity. She notes that with sitting cross legged for long periods of time she develops a soreness in the lateral aspect of her right thigh. After physical activity she also notes that the anterior right thigh feels numb and the leg feels heavy to lift. While in the office today, I obtained x-rays of the right hip and pelvis which were negative for any acute fracture or dislocation. No arthritic changes noted. On physical exam of her hip there was no indication of true hip pathology. Due to the nature of pain running through the entire right lower extremity accompanied by numbness I feel the patient should be evaluated by Dr. Tarango for the possibility of a low back component contributing to her symptoms. She will follow up with Orthopedics p.r.n., sooner if needed Orders: Orders XR hip RT min 2V Today M25.559 - Pain in unspecified hip Coding Level of Care Code New Pt Level 3 (43704) Diagnoses Lumbar radiculopathy, right M54.16
--- OUTSIDE RECORDS SUMMARY | 2025-08-19 14:59 | XMS_ITS | Clinical Summary ---
Author Organization [facility] Address [address] [place] [address] Care Team Providers Care Curb Machine Operator Name Role Phone Shandra Zacarias SATYA Primary Care Provider [phone] Source Comments PLEASE NOTE, if this patient [...] Insurance [employer] Care Teams Curb Machine Operator Relationship Specialty Start Date End Date Shandra Zacarias FNP [address] [place] [id number] PCP - General Family Medicine, SPLUNK DEVELOPER 03/03/15
== END 2025-08-19 15:03 | disposition home or self-care (01) ==
LOC: HO.HOS 14:21
PROVIDERS: PCP Internal Medicine; Visit Provider Physician Assistant
DX: M54.16 Radiculopathy, lumbar region (principal)
CPT/HCPCS: 99203

== ENCOUNTER → 2025-08-19 14:23 | Outpatient (BNV) | payer BC, SELFPAY | PROVIDERS: Visit Provider Radiology Diagnostic Radiology | DX: Q65.89 Other specified congenital deformities of hip (principal) | CPT/HCPCS: 73502 ==

== ENCOUNTER 2025-08-19 14:28 | Outpatient (REF) | payer BC, SELFPAY ==
--- NOTE | ~2025-08-19 | XR_ITS ---
EXAMINATION: XR HIP, RIGHT CLINICAL INFORMATION: M25.559 - Pain in unspecified hip COMPARISON: None available. TECHNIQUE: AP talus, AP supine, and frog-leg lateral views of the right hip. FINDINGS: SI joints are symmetrical and unremarkable. Pubic symphysis joint is within normal limits. Hip joint spaces are symmetrical and congruent. 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 Electronically signed by: Moose Murillo MD 08/19/2025 02:43 PM EDT
--- OUTSIDE RECORDS SUMMARY | 2025-08-21 14:30 | XMS_ITS | Clinical Summary ---
Author Organization [facility] Address [address] [place] [address] Care Team Providers Care Bureau Director Name Role Phone Shandra Zacarias SATYA Primary Care Provider [phone] Source Comments PLEASE NOTE, if this patient [...] Insurance [employer] Care Teams Bureau Director Relationship Specialty Start Date End Date Shandra Zacarias FNP [address] [place] [phone] PCP - General Family Medicine, MATLAB DEVELOPER 03/03/15
== END 2025-08-19 14:29 | disposition home or self-care (01) ==
LOC: HO.HOSX 14:28
PROVIDERS: Visit Provider Physician Assistant
DX: M25.559 Pain in unspecified hip (principal)
CPT/HCPCS: 73502